=== PATIENT | male | born 2000 | race Caucasian/White ===

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

== ENCOUNTER → 2021-04-13 15:28 | Outpatient (CLI) | payer BC, MEDICAID, SELFPAY ==
[2021-04-13 16:21] LABS: Absolute Lymphocyte Count 2.36 X10^3/uL (0.83-4.51); Absolute Neutrophil Count 4.7 X10^3/uL (2.0-7.7); Basophil# 0.05 X10^3/uL; Basophil% 0.6 % (0-1); Eosinophils% 1.3 % (0-5); Hemoglobin 13.3 g/dL (13.0-16.5); Lymphocyte # 2.36 X10^3/ul (0.83-4.51); Lymphocyte % 29.8 % (19-41); Mean Corpuscular Hgb 30.1 pg (27.0-32.0); Mean Platelet Vol. 9.7 fl (6.2-12.0); Monocyte# 0.69 X10^3/uL; Monocyte% 8.7 % (0-10); NRBC Flagged by Analyzer 0 % (0-5); Neutrophil # 4.71 X10^3/uL (2.7-7.7); Neutrophil % 59.3 % (47-70); Platelet Count 280 K/mm3 (150-450); RBC Distribution Width SD 37.3 fl (35.1-43.9); Red Blood Count 4.42 M/mm3 (4.6-6.2); White Blood Count 7.9 K/mm3 (4.4-11.0)
[2021-04-13 16:34] LABS: Erythrocyte Sedimentation Rate 3 mm/hr (0-20)
[2021-04-13 17:40] LABS: ALB/GLOB Ratio 1.3 RATIO (0.9-2.4); AST(SGOT) 31 U/L (15-37); Alanine Aminotransfer ALT/SGPT 33 U/L (16-61); Albumin, Serum 4.2 g/dL (3.2-5.0); Alkaline Phosphatase 68 U/L (45-117); Anion Gap 7 (5-15); BUN 17 mg/dL (7-18); BUN/Creat Ratio 22.5 RATIO (10-20); CRP < 2.90 mg/L (0.0-3.0); Calcium,Total 9.1 mg/dL (8.5-10.1); Chloride 104 mmol/L (98-107); Creatinine, Serum 0.76 mg/dL (0.70-1.30); EST Glomerular Filtration Rate 137 mL/min (>60); Est Glom Filt Rate - Afr Amer 165 mL/min (>60); Globulin 3.2 g/dL (2.2-4.2); Glucose 79 mg/dL (74-106); Potassium 3.7 mmol/L (3.5-5.1); Protein, Total 7.4 g/dL (6.4-8.2); Sodium Level 138 mmol/L (136-145)
[2021-04-14 08:42] LABS: Rubella IgG Reactive (Nonreactive)
[2021-04-16 00:06] LABS: HEPATITIS B SURFACE AG Negative (Negative); Hepatitis A IgM Antibody Negative (Negative); Hepatitis B Core AB IgM Negative (Negative)
[2021-04-16 09:04] LABS: B. pertussis IgG 2.13 index (0.00-0.94); Hep C Antibodies <0.1 s/co ratio (0.0-0.9); Mumps Antibody, IgM < 0.80 AU (0.00-0.79); V-Zoster IgG (Immunity) 449 index (Immune >165)
== END ==
PROVIDERS: PCP Family Medicine; Referring Provider Internal Medicine Gastroenterology; Visit Provider Internal Medicine Gastroenterology
DX: K50.90 Crohn's disease, unspecified, without complications (principal); R10.9 Unspecified abdominal pain
CPT/HCPCS: 36415; 80053; 80074; 85025; 85652; 86140; 86735; 86762; 86787

== ENCOUNTER → 2021-04-14 17:33 | Outpatient (CLI) | payer BC, MEDICAID, SELFPAY ==
--- NOTE | 2021-04-14 17:36 | CT_ITS ---
STUDY: CT ABDOMEN AND PELVIS WITH CONTRAST REASON FOR EXAM: Male, 20 years old. Abdominal pain, history of Crohn''s disease RADIATION DOSAGE (If Supplied By Facility): CTDIvol = ( 8.7 ) mGy, DLP = ( 360.48 ) mGycm TECHNIQUE: CT images were obtained from the dome of the diaphragm to the symphysis pubis without oral contrast. Oral and amp; IV Readi-CAT and amp; 100mL Isovue-370 was administered. Sagittal and coronal images were reconstructed. Individualized dose optimization techniques were used for this CT. COMPARISON: None. FINDINGS: Examination is technically limited and was performed as a general abdominal exam, not CT enterography protocol. Assessment of bowel for inflammatory disease activity is suboptimal. General diagnostic information is available. Solid organs are normal. There is no intestinal obstruction. There is no stricture or enteric abscess. Left lower quadrant junction of descending and sigmoid is nondistended and difficult to evaluate for possibility of wall thickening. Appendix is normal. Gallbladder is normal. There is no biliary dilation. There is no hydronephrosis or stones. SI joints are normal. There is no seronegative spondyloarthropathy. CT/Abdomen/Pelvis WITH Contrast IMPRESSION: 1. No acute abdominal abnormality. Electronically Signed: Ba Irwin MD at 21:51 EST Tel , Service support ,
== END ==
PROVIDERS: PCP Family Medicine; Referring Provider Internal Medicine Gastroenterology; Visit Provider Internal Medicine Gastroenterology
DX: K50.90 Crohn's disease, unspecified, without complications (principal); R10.9 Unspecified abdominal pain
CPT/HCPCS: 74177; Q9967

== ENCOUNTER → 2022-03-10 | Outpatient (CLI) | payer BC, MEDICAID, SELFPAY ==
[2022-03-10 13:13] LABS: Absolute Lymphocyte Count 1.58 X10^3/uL (0.83-4.51); Absolute Neutrophil Count 8.4 X10^3/uL (2.0-7.7); Basophil# 0.03 X10^3/uL; Basophil% 0.3 % (0-1); Eosinophil# 0.01 X10^3/uL; Eosinophils% 0.1 % (0-5); Hemoglobin 16.2 g/dL (13.0-16.5); Lymphocyte # 1.58 X10^3/ul (0.83-4.51); Lymphocyte % 15.1 % (19-41); Mean Corp Hgb Conc 34.5 g/dL (32-36); Mean Corpuscular Hgb 30.7 pg (27.0-32.0); Mean Corpuscular Volume 89.2 fL (80-94); Mean Platelet Vol. 9.6 fl (6.2-12.0); Monocyte# 0.37 X10^3/uL; Monocyte% 3.5 % (0-10); NRBC Flagged by Analyzer 0 % (0-5); Neutrophil # 8.44 X10^3/uL (2.7-7.7); Neutrophil % 80.7 % (47-70); Platelet Count 295 K/mm3 (150-450); RBC Distribution Width CV 11.8 % (11.6-14.6); RBC Distribution Width SD 38.5 fl (35.1-43.9); Red Blood Count 5.27 M/mm3 (4.6-6.2); White Blood Count 10.5 K/mm3 (4.4-11.0)
[2022-03-10 13:22] LABS: Erythrocyte Sedimentation Rate < 1 mm/hr (0-20)
[2022-03-10 13:55] LABS: ALB/GLOB Ratio 1.4 RATIO (0.9-2.4); AST(SGOT) 12 U/L (15-37); Alanine Aminotransfer ALT/SGPT 20 U/L (16-61); Albumin, Serum 4.5 g/dL (3.2-5.0); Alkaline Phosphatase 62 U/L (45-117); Anion Gap 6 (5-15); BUN 12 mg/dL (7-18); BUN/Creat Ratio 14.1 RATIO (10-20); CRP < 2.90 mg/L (0.0-3.0); Calcium,Total 9.3 mg/dL (8.5-10.1); Chloride 105 mmol/L (98-107); Creatinine, Serum 0.85 mg/dL (0.70-1.30); EST Glomerular Filtration Rate 118 mL/min (>60); Est Glom Filt Rate - Afr Amer 143 mL/min (>60); Globulin 3.2 g/dL (2.2-4.2); Glucose 107 mg/dL (74-106); Potassium 3.8 mmol/L (3.5-5.1); Protein, Total 7.7 g/dL (6.4-8.2); Sodium Level 140 mmol/L (136-145)
[2022-03-14 19:09] LABS: Calprotectin, Stool 202 ug/g (0-120)
== END | disposition home or self-care (01) ==
PROVIDERS: PCP Family Medicine; Referring Provider Internal Medicine Gastroenterology; Visit Provider Internal Medicine Gastroenterology
DX: K50.90 Crohn's disease, unspecified, without complications (principal); K58.9 Irritable bowel syndrome, unspecified
CPT/HCPCS: 36415; 80053; 83630; 83993; 85025; 85652; 86140

== ENCOUNTER → 2022-07-27 | Outpatient (CLI) | payer BC, MEDICAID, SELFPAY ==
[2022-07-27 16:04] LABS: Absolute Lymphocyte Count 1.53 X10^3/uL (0.83-4.51); Absolute Neutrophil Count 6.3 X10^3/uL (2.0-7.7); Basophil# 0.06 X10^3/uL; Basophil% 0.7 % (0-1); Eosinophil# 0.05 X10^3/uL; Eosinophils% 0.6 % (0-5); Hematocrit 47.2 % (40-54); Hemoglobin 16.2 g/dL (13.0-16.5); Lymphocyte # 1.53 X10^3/ul (0.83-4.51); Lymphocyte % 17.9 % (19-41); Mean Corp Hgb Conc 34.3 g/dL (32-36); Mean Corpuscular Hgb 31.1 pg (27.0-32.0); Mean Corpuscular Volume 90.6 fL (80-94); Mean Platelet Vol. 10.1 fl (6.2-12.0); Monocyte# 0.59 X10^3/uL; Monocyte% 6.9 % (0-10); NRBC Flagged by Analyzer 0 % (0-5); Neutrophil # 6.29 X10^3/uL (2.7-7.7); Neutrophil % 73.7 % (47-70); Platelet Count 268 K/mm3 (150-450); RBC Distribution Width CV 11.9 % (11.6-14.6); RBC Distribution Width SD 39.5 fl (35.1-43.9); Red Blood Count 5.21 M/mm3 (4.6-6.2); White Blood Count 8.5 K/mm3 (4.4-11.0)
[2022-07-27 16:14] LABS: ALB/GLOB Ratio 1.6 RATIO (0.9-2.4); AST(SGOT) 23 U/L (15-37); Alanine Aminotransfer ALT/SGPT 23 U/L (16-61); Albumin, Serum 4.7 g/dL (3.2-5.0); Alkaline Phosphatase 70 U/L (45-117); Amylase 51 U/L (25-115); Anion Gap 3 (5-15); BUN 22 mg/dL (7-18); BUN/Creat Ratio 19.1 RATIO (10-20); Calcium,Total 9.7 mg/dL (8.5-10.1); Chloride 102 mmol/L (98-107); Creatinine, Serum 1.15 mg/dL (0.70-1.30); EST Glomerular Filtration Rate 83 mL/min (>60); Est Glom Filt Rate - Afr Amer 101 mL/min (>60); Globulin 2.9 g/dL (2.2-4.2); Glucose 91 mg/dL (74-106); Potassium 4.2 mmol/L (3.5-5.1); Protein, Total 7.6 g/dL (6.4-8.2); Sodium Level 136 mmol/L (136-145)
[2022-07-27 16:20] LABS: Erythrocyte Sedimentation Rate 1 mm/hr (0-20)
[2022-07-29 16:09] LABS: HEPATITIS B SURFACE AG Negative (Negative); Hep C Antibodies Non Reactive (Non Reactive); Hepatitis A IgM Antibody Negative (Negative); Hepatitis B Core AB IgM Negative (Negative); QNTFERON TB Mitogen Value > 10.00 IU/mL (.); QNTFERON TB Nil Value 0.05 IU/mL (.); QNTFERON TB1+ Ag Value 0.04 IU/mL (.); QNTFERON TB2+ Ag Value 0.04 IU/mL (.)
[2022-07-29 16:27] LABS: QNTIFERON TB Positive Criteria Negative (Negative)
== END | disposition home or self-care (01) ==
PROVIDERS: PCP Family Medicine; Referring Provider Internal Medicine Gastroenterology; Visit Provider Internal Medicine Gastroenterology
DX: K50.90 Crohn's disease, unspecified, without complications (principal)
CPT/HCPCS: 36415; 80053; 80074; 82150; 85025; 85652; 86480

== ENCOUNTER → 2022-08-26 | Outpatient (CLI) | payer BC, MEDICAID, SELFPAY ==
--- NOTE | 2022-08-26 10:11 | MRI_ITS ---
MR Enterography Abdomen/Pelvis WO/W Contrast 08/26/2022 11:29 AM COMPARISON: None available. CLINICAL HISTORY: K50.90 - Crohn''s disease, unspecified, without complications TECHNIQUE: Following oral administration of enteric contrast and administration of glucagon, multiplanar T1 and T2 weighted images along with dynamic post-gadolinium images were obtained through the abdomen and pelvis. FINDINGS: GI Tract: Normal caliber. Mild wall thickening and mucosal hyperenhancement of a few short segment small bowel loops in the left upper quadrant. No stricture, fistula, or obstruction. No drainable fluid collections. Liver: Unremarkable Gallbladder: Unremarkable Spleen: Unremarkable Pancreas: Unremarkable Adrenal Glands: Unremarkable Kidneys: Unremarkable Bladder: Unremarkable Reproductive: Unremarkable Vascular: Unremarkable Lymphadenopathy: Absent Ascites: Absent Bones: No suspicious lesions MRI/Enterography Abd/Pel IMPRESSION: Findings consistent with acute flare of Crohn''s disease. No stricture, fistula or obstruction. No drainable fluid collections. Electronically Signed: Jayro Bernabe MD at 22:42 EDT ,
[2022-08-26 10:35] VITALS: BP 97/61; PULSE 73; RESP 18; TEMP 36.8; O2SAT 100; BMI 22.0
[2022-08-26] MEDS: 0.9% Saline Lock 10 ML Syringe IV ×2 (11:30→11:49)
[2022-08-26] MEDS: Glucagon 1 MG/ML Syringe IV (11:49)
[2022-08-26 12:03] VITALS: BP 102/69; PULSE 70; RESP 18; O2SAT 100
== END | disposition home or self-care (01) ==
LOC: MRI 10:04
PROVIDERS: PCP Family Medicine; Referring Provider Internal Medicine Gastroenterology; Visit Provider Internal Medicine Gastroenterology
DX: K50.90 Crohn's disease, unspecified, without complications (principal)
CPT/HCPCS: 74183; 96374; A9575; J1610

== ENCOUNTER 2022-11-18 09:58 | Outpatient (CLI) | payer BC, MEDICAID, SELFPAY ==
[2022-11-18 10:28] VITALS: BP 124/68; PULSE 90; RESP 14; TEMP 36.4; O2SAT 96; BMI 21.2
[2022-11-18] MEDS: 0.9% NaCl Peripheral Flush Adult/Peds IV (10:36)
[2022-11-18] MEDS: Dextrose 5% 250 ML 15 ML IV (10:36)
[2022-11-18 12:22] VITALS: BP 123/77; PULSE 73; RESP 16; O2SAT 99
== END 2022-11-18 09:59 | disposition home or self-care (01) ==
LOC: MEDOUTP 09:59
PROVIDERS: PCP Family Medicine; Visit Provider Internal Medicine Gastroenterology
DX: K50.90 Crohn's disease, unspecified, without complications (principal)
CPT/HCPCS: 96365; 96366; A4216; J2327

== ENCOUNTER 2022-12-16 09:29 | Outpatient (CLI) | payer BC, MEDICAID, SELFPAY ==
[2022-12-16 09:37] VITALS: BP 111/63; PULSE 89; RESP 16; TEMP 36.1; O2SAT 95; BMI 21.4
[2022-12-16] MEDS: 0.9% NaCl Peripheral Flush Adult/Peds IV (09:45)
[2022-12-16] MEDS: Dextrose 5% 250 ML 15 ML IV (10:29)
[2022-12-16 11:50] VITALS: BP 109/58; PULSE 76; RESP 16; TEMP 36.6; O2SAT 94
== END 2022-12-16 09:30 | disposition home or self-care (01) ==
PROVIDERS: PCP Family Medicine; Referring Provider Internal Medicine Gastroenterology; Visit Provider Internal Medicine Gastroenterology
DX: K50.90 Crohn's disease, unspecified, without complications (principal)
CPT/HCPCS: 96360; A4216; J2327

== ENCOUNTER 2023-01-13 09:19 | Outpatient (CLI) | payer BC, MEDICAID, SELFPAY ==
[2023-01-13 09:25] VITALS: BP 101/53; PULSE 73; RESP 16; TEMP 36.5; O2SAT 94; BMI 20.7
[2023-01-13] MEDS: 0.9% NaCl Peripheral Flush Adult/Peds IV (09:31)
[2023-01-13] MEDS: WATER IV (09:52)
[2023-01-13] MEDS: DEXTROSE 5% IV (09:52)
[2023-01-13] MEDS: Risankizumab-rzza 600 MG in Dextrose 5%-Water (100mL Bag) 100 ML 110 MG IV (09:55)
[2023-01-13 11:26] VITALS: BP 110/62; PULSE 91; RESP 16; O2SAT 99
== END 2023-01-13 09:20 | disposition home or self-care (01) ==
LOC: MEDOUTP 09:19
PROVIDERS: PCP Family Medicine; Referring Provider Internal Medicine Gastroenterology; Visit Provider Internal Medicine Gastroenterology
DX: K50.90 Crohn's disease, unspecified, without complications (principal)
CPT/HCPCS: 96365; A4216; J2327

== ENCOUNTER → 2023-06-08 | Outpatient (CLI) | payer BC, MEDICAID, SELFPAY ==
[2023-06-08 14:14] LABS: Erythrocyte Sedimentation Rate 1 mm/hr (0-20)
[2023-06-08 14:15] LABS: CRP < 2.90 mg/L (0.0-3.0); LDH 253 U/L (87-241)
[2023-06-08 14:16] LABS: Hemoglobin 14.5 g/dL (13.0-16.5)
--- OUTSIDE RECORDS SUMMARY | 2023-06-08 18:23 | XMS RPT_ITS | CCD ---
Author Name Unknown Address [address] [place] [address] Organization [facility] Care Team Providers Care Commercial Loan Analyst Name Role Phone CHILO MCNAMARA, BOO Banuelos Primary Care Physician VINITA MCNAMARA, AUGUSTUS Rose Attending Unavailab BOO Ruelas MD Primary Care Unavailable Allergies Allergy Classification Reported Allergen(s) Allergy Type Date of Onset Reaction(s) Facility (1 source) Penicillin; Translations: [penicillin] Drug Allergy unknown [facility] (1 source) Sulfamethoxazole / Trimethoprim; Translations: [sulfamethoxazole-tr imethoprim] Drug Allergy Rash [facility] Medications Current Medications Medication Drug Class(es) Dates Sig (Normalized) Sig (Original) FLUoxetine 20 mg oral capsule (1 source) Serotonin Reuptake Inhibitor Start: 05-05-2021 FLUoxetine 20 mg oral capsule Dose : 20 mg = 1 cap(s), Oral, qDay, # 90 cap(s), 3 Refill(s), Pharmacy: [facility]/pharmacy #[id number], Moderate major depression, single episode, 174, cm, 05/05/21 15:47:00 EST, Height, kg, 05/05/21 15:47:00 EST, Dosing Weight Start Date: 05/05/21 Status: Ordered folic acid 1 mg oral tablet (1 source) Start: 10-17-2019 folic acid 1 mg oral tablet See Instructions, 0 Refill(s) Start Date: 10/17/19 Status: Ordered methotrexate 2.5 mg oral tablet (1 source) Folate Analog Metabolic Inhibitor Start: 10-17-2019 methotrexate 2.5 mg oral tablet Dose : 10 mg = 4 tab(s), Oral, qWeek, 0 Refill(s) Start Date: 10/17/19 Status: Ordered 1 ml ustekinumab 90 mg/ml prefilled syringe (1 source) Interleukin-12 Antagonist, Interleukin-23 Antagonist Start: 10-17-2019 Stelara PFS 90 mg/mL subcutaneous solution See Instructions, 1 mL Subcutaneous, 0 Refill(s) Start Date: 10/17/19 Status: Ordered Vitamin D3 (1 source) Start: 10-17-2019 Vitamin D3 Oral, qDay, 0 Refill(s) Start Date: 10/17/19 Status: Ordered Problems Problem Classification Problem Date Documented Da te Episodic/Chronic Allergic reactions (1 source) Atopic dermatitis 05-05-2021 Chronic Attention-deficit, conduct, and disruptive behavior disorders (1 source) Attention deficit hyperactivity disorder, combined type 03-12-2020 Chronic Headache; including migraine (1 source) Migraine without aura, not refractory 03-11-2019 Chronic Mood disorders (1 source) Moderate major depression, single episode 11-11-2019 Chronic Regional enteritis and ulcerative colitis (1 source) Crohn's disease 03-11-2019 Chronic Results Test Name Value Interpretation Reference Range Facil ity Vital Signs Date Time Vital Sign Value Performing Clinician Faci lity 04-11-2022 16:36-0500 Body height 172.[address] AUGUSTUS TALAMANTES MD [facility] 04-11-2022 16:36-0500 Body weight 63.[address] AUGUSTUS TALAMANTES MD [facility] 04-11-2022 16:36-0500 Diastolic Blood Pressure Non-Invasive [address] AUGUSTUS TALAMANTES MD [facility] 04-11-2022 16:36-0500 Heart rate 92 /min DR AUGUSTUS TALAMANTES MD [facility] 04-11-2022 16:36-0500 Respiratory rate 18 /min DR AUGUSTUS TALAMANTES MD [facility] 04-11-2022 16:36-0500 Systolic Blood Pressure Non-Invasive [address] AUGUSTUS TALAMANTES MD [facility] Encounters Encounter Date Encounter Type Care Provider Facility Start: 04-11-2022 End: 04-11-2022 Emergency department patient visit AUGUSTUS TALAMANTES MD Facility:B Start: 04-11-2022 End: 04-11-2022 Emergency department patient visit DR AUGUSTUS TALAMANTES MD [facility] Procedures Date Procedure Procedure Detail Performing Clinician Hemorrhoidectomy DR AUGUSTUS CASILLAS MD Immunizations Immunization Date Immunization Notes Care Provider Fa cili 04-11-2022 tetanus toxoid, redu devendra diphtheria toxoid, and acellular pertussis vaccine, adsorbed DR AUGUSTUS TALAMANTES MD [facility] 02-11-2019 influenza virus vaccine, unspecified formulation DR AUGUSTUS TALAMANTES MD [facility] 01-19-2018 influenza virus vaccine, unspecified formulation DR AUGUSTUS TALAMANTES MD [facility] 01-30-2017 influenza virus vaccine, unspecified formulation DR AUGUSTUS TALAMANTES MD [facility] 01-22-2017 influenza virus vaccine, unspecified formulation DR AUGUSTUS TALAMANTES MD [facility] 04-20-[address] AUGUSTUS TALAMANTES MD [facility] 02-05-2016 influenza virus vaccine, unspecified formulation DR AUGUSTUS TALAMANTES MD [facility] 12-14-[address] AUGUSTUS TALAMANTES MD [facility] 10-13-[address] AUGUSTUS TALAMANTES MD [facility] 03-18-2015 influenza virus vaccine, unspecified formulation DR AUGUSTUS TALAMANTES MD [facility] 02-14-2014 influenza virus vaccine, unspecified formulation DR AUGUSTUS TALAMANTES MD [facility] 01-25-2013 influenza virus vaccine, unspecified formulation DR AUGUSTUS TALAMANTES MD [facility] 02-10-2012 influenza virus vaccine, unspecified formulation DR AUGUSTUS TALAMANTES MD [facility] 11-03-2011 meningococcal polysaccharide (groups A, C, Y and W-135) diphtheria toxoid conjugate vaccine (MCV4P) DR AUGUSTUS TALAMANTES MD [facility] 11-03-2011 tetanus toxoid, redu devendra diphtheria toxoid, and acellular pertussis vaccine, adsorbed DR AUGUSTUS TALAMANTES MD [facility] 11-03-[address] Joanie TALAMANTES MD [facility] 01-20-2000 measles/mumps/rubell a virus vaccine DR AUGUSTUS TALAMANTES MD [facility] 01-20-[address], inactivated [address] AUGUSTUS TALAMANTES MD [facility] 08-19-1999 hepatitis B pediatri c vaccine DR AUGUSTUS TALAMANTES MD [facility] 06-17-1999 haemophilus influenz ae type b vaccine, PRP-OMP conjugate DR AUGUSTUS TALAMANTES MD [facility] 03-26-1999 haemophilus influenz ae type b vaccine, PRP-OMP conjugate DR AUGUSTUS TALAMANTES MD [facility] 03-26-1999 hepatitis B pediatri c vaccine DR AUGUSTUS TALAMANTES MD [facility] 03-26-[address] vaccine, inactivated DR AUGUSTUS TALAMANTES MD [facility] 01-22-1999 haemophilus influenz ae type b vaccine, PRP-OMP conjugate DR AUGUSTUS TALAMANTES MD [facility] 01-22-1999 hepatitis B pediatri c vaccine DR AUGUSTUS TALAMANTES MD [facility] 01-22-[address], inactivated [address] AUGUSTUS TALAMANTES MD [facility] Payers Date Payer Category Payer Unknown [id number] 2022 Unknown [id number] 2000 Unknown [id number] Social History Date Type Detail Facility Start: 03-11-2019 Tobacco smoking status Never s moked tobacco (finding) [facility] Functional Status Date Assessment Result Facility 04-11-2022 Functional Status Assistive Device None A [facility] Mental Status Date Assessment Result Facility 04-11-2022 Mental Status Orientation Oriented x 4 [facility] Discharge instructions 04-11-2022 Note Date & Type Note Facility 04-11-2022 Hospital Discharg e instructions Patient Education 04/11/2022 17:07:37 Laceration, Hand: All Closures Hand Laceration: All Closures A laceration is a cut through the skin. Deep cuts usually require stitches. Minor cuts may be closed with surgical tape or skin adhesive. X-rays may be done if something may have entered the skin through the cut, such as broken glass. You may also be given a tetanus shot if you are not up to date on this vaccination and the object that cut you may carry tetanus. Home care Your healthcare provider may prescribe an antibiotic. This is to help prevent infection. Follow all instructions for taking this medicine. Take the medicine every day until it is gone or you are told to stop. You should not have any left over. The healthcare provider may prescribe medicines for pain. Follow instructions for taking them. Follow the healthcare provider s instructions on how to care for the cut. Keep the wound clean and dry. Don't get the wound wet until you are told it is OK to do so. If the bandage gets wet, remove it. Gently pat the wound dry with a clean cloth. Then put on a clean, dry bandage. To help prevent infection, wash your hands with soap and water before and after caring for the wound. Caring for stiches: Once you no longer need to keep the stitches dry, clean the wound daily. First, remove the bandage. Then wash the area gently with soap and warm water, or as directed by the healthcare provider. Use a wet cotton swab to loosen and remove any blood or crust that forms. After cleaning, apply a thin layer of antibiotic ointment if advised. Then put on a new bandage unless you are told not to. Caring for skin glue: Don t put apply liquid, ointment, or cream on the wound while the glue is in place. Avoid activities that cause heavy sweating. Protect the wound from sunlight. Don't scratch, rub, or pick at the adhesive film. Don't place tape directly over the film. The glue should peel off within 5 to 10 days. Caring for surgical tape: Keep the area dry. If it gets wet, blot it dry with a clean towel. Surgical tape usually falls off within 7 to 10 days. If it has not fallen off after 10 days, you can take it off yourself. Put mineral oil or petroleum jelly on a cotton ball and gently rub the tape until it is removed. Once you can get the wound wet, you may shower as usual, but don't soak the wound in water. This means no tub baths or swimming. Even with proper treatment, a wound infection may sometimes occur. Check the wound daily for signs of infection listed below. Follow-up care Follow up with your healthcare provider, or as advised. If you have stitches, be sure to return as directed to have them removed. When to seek medical advice Call your healthcare provider right away if any of these occur: Wound bleeding not controlled by direct pressure Signs of infection, including increasing pain in the wound, increasing wound redness or swelling, or pus or bad odor coming from the wound Fever of 100.4 F (38. C) o higher, or as directed by your healthcare provider Stitches come apart or fall out or surgical tape falls off before 7 days Wound edges reopen Wound changes colors Numbness or weakness in the affected hand Decreased movement of the hand [id number] [employer] [address] [place] [address]. All rights reserved. This information is not intended as a substitute for professional medical care. Always follow your healthcare professional's instructions. Follow Up Care 04/11/2022 15:59:17 With:BOO WOO MD Address: [address] [place] [address]- When:2-4 days [facility] Emergency department Discharge summary 04-11-2022 Note Date & Type Note Facility 04-11-2022 Emergency department Discharge summary Discharge Instructions Thank you for allowing [facility] to assist you with your healthcare needs. The following is important discharge information regarding your hospital visit. Diagnosis from Today's Visit Finger laceration What to Do Next Instructions from Your Care Team Sutures removed in 7 to 10 days by primary care physician. Keep area dry and clean. If evidence of infection such as fever, redness, purulent material draining from the wound return for further evaluation and management No qualifying data available. Post Acute Orders No qualifying data available. You Need to Schedule the Following Appointments Follow Up with BOO WOO MD When Within 2-4 days Where: [address] [place], [place] [id number]- Allergies Septra (Rash) penicillin (unknown) Immunizations This Visit Given Vaccine Datetetanus/diphth/pertuss (Tdap) adult/adol 04/11/2022 Medications Please ask your primary doctor or pharmacist before taking any other medication not listed, including over the counter drugs, herbal medications, vitamins and or supplements as they may interact with your home medications. What How Much When Why Instructions Last Dose Unchanged cholecalciferol (Vitamin D3) by mouth Once a day Unchanged FLUoxetine (FLUoxetine 20 mg oral capsule) 1 cap by mouth Once a day Moderate major depression, single episode Unchanged folic acid (folic acid 1 mg oral tablet) See instructions Unchanged methotrexate (methotrexate 2.5 mg oral tablet) 4 tab(s) by mouth Every week Unchanged ustekinumab (Stelara PFS 90 mg/ mL subcutaneous solution) See instructions 1 mL Subcutaneous Please take this list to your next doctor s visit. Bring all medications you take, including over the counter medications, herbals and other supplements with you to your doctor s visit. Patients and families are reminded to discard old lists and to update any records with all medication providers or retail pharmacies. Education Materials Hand Laceration: All Closures A laceration is a cut through the skin. Deep cuts usually require stitches. Minor cuts may be closed with surgical tape or skin adhesive. X-rays may be done if something may have entered the skin through the cut, such as broken glass. You may also be given a tetanus shot if you are not up to date on this vaccination and the object that cut you may carry tetanus. Home care Your healthcare provider may prescribe an antibiotic. This is to help prevent infection. Follow all instructions for taking this medicine. Take the medicine every day until it is gone or you are told to stop. You should not have any left over. The healthcare provider may prescribe medicines for pain. Follow instructions for taking them. Follow the healthcare provider s instructions on how to care for the cut. Keep the wound clean and dry. Don't get the wound wet until you are told it is OK to do so. If the bandage gets wet, remove it. Gently pat the wound dry with a clean cloth. Then put on a clean, dry bandage. To help prevent infection, wash your hands with soap and water before and after caring for the wound. Caring for stiches: Once you no longer need to keep the stitches dry, clean the wound daily. First, remove the bandage. Then wash the area gently with soap and warm water, or as directed by the healthcare provider. Use a wet cotton swab to loosen and remove any blood or crust that forms. After cleaning, apply a thin layer of antibiotic ointment if advised. Then put on a new bandage unless you are told not to. Caring for skin glue: Don t put apply liquid, ointment, or cream on the wound while the glue is in place. Avoid activities that cause heavy sweating. Protect the wound from sunlight. Don't scratch, rub, or pick at the adhesive film. Don't place tape directly over the film. The glue should peel off within 5 to 10 days. Caring for surgical tape: Keep the area dry. If it gets wet, blot it dry with a clean towel. Surgical tape usually falls off within 7 to 10 days. If it has not fallen off after 10 days, you can take it off yourself. Put mineral oil or petroleum jelly on a cotton ball and gently rub the tape until it is removed. Once you can get the wound wet, you may shower as usual, but don't soak the wound in water. This means no tub baths or swimming. Even with proper treatment, a wound infection may sometimes occur. Check the wound daily for signs of infection listed below. Follow-up care Follow up with your healthcare provider, or as advised. If you have stitches, be sure to return as directed to have them removed. When to seek medical advice Call your healthcare provider right away if any of these occur: Wound bleeding not controlled by direct pressure Signs of infection, including increasing pain in the wound, increasing wound redness or swelling, or pus or bad odor coming from the wound Fever of 100.4 F (38. C) o higher, or as directed by your healthcare provider Stitches come apart or fall out or surgical tape falls off before 7 days Wound edges reopen Wound changes colors Numbness or weakness in the affected hand Decreased movement of the hand [phone] [employer] [address] [place] [address]. All rights reserved. This information is not intended as a substitute for professional medical care. Always follow your healthcare professional's instructions. Additional Information VACCINATE! IT SAVES LIVES! Members of the community who have not yet received the COVID-19 vaccine and would like to receive it can visit one of [facility] vaccine clinics. There are many vaccine clinic locations within the [facility]. For locations and available times, please visit [email or web address]. It is important to note that some COVID mobile vaccine clinics are held outdoors and may be canceled in rainy or stormy conditions. To learn more about pediatric vaccinations (ages 5-11), we invite you to visit the [facility] webpage. [email or web address] To learn more about the COVID-19 vaccine, we invite you to visit the [facility] website for a list of frequently asked questions. [email or web address] [email or web address] [facility] Patient Portal Access Instructions: Stay connected with your healthcare team and access your personal medical information anytime with the [facility] Patient Portal. If you would like a full copy of your medical records please contact the [facility] Medical Records Department Monday through Monday between 8a.m. and 4:30p.m. Please follow the directions below to access the portal: 1.Access the email account you provided upon registration to the hospital.2.Look for an invitation email from [facility].3.Open the email and access the invitation link: Accept Invitation to [facility]4.Fill in the required hicks to create your account. Sign into www.[employer] with your username and password that you created in the above steps to stay up to date. You can then view a summary of results, a summary of your visits, and the ability to download your summaries to your computer or send the information securely to a physician. Remember that your healthcare information is confidential, so carefully consider who you will allow to register on the [facility] Patient Portal for access to your information. You can also access the [facility] Patient Portal on the [employer]. Simply click on Health Records under Health Data and then click on the [employer] logo. HOW TO SAFELY DISPOSE OF PRESCRIPTION MEDICATIONS Please use one of the following methods to safely dispose of your unused medications. 1.Use a drug disposal kit: the drug disposal pouch allows you to safely discard your old and unused drugs. Ask your nurse to give you one when you are discharged.2.Visit a local take-back location: Many local pharmacies and police departments have programs that collect old and unwanted prescription drugs. Call your local pharmacy or go to http://[employer].ezeep/9F2Rn5w to find one close to you.3.Make use of household items: Use cat litter or old coffee grounds to dispose medications if other options are not available. Mix your drugs with these household products, seal them in an airtight container and throw it into the garbage. Call [facility]: [phone] to be sure your drugs can be disposed of in this way. Some medicines may require a different approach.4.Never flush your medications down the toilet. IF YOU HAVE BEEN PRESCRIBED AN OPIOIDS FOR PAIN If you have been prescribed an opioid (such as hydrocodone, oxycodone or morphine), it is critical to understand the possible side effects and risks of opioid pain medications. Even when taken as directed, opioids can have several side effects including: Tolerance, meaning you might need to take more of a medication for the same pain relief. Nausea, vomiting and/or constipation. Sleepiness, dizziness, dry mouth, confusion, depression or itching. Physical dependence, meaning you have withdrawal symptoms when a medication is stopped ? this can develop within a few days. KNOW YOUR RESPONSIBILITIES It is important to know exactly how much and how often to take the opioid pain medications you are prescribed. Never take opioids in higher amounts or more often than prescribed. Do not combine opioids with alcohol or other drugs that cause drowsiness, such as benzodiazepines, also known as benzos, including diazepam and alprazolam, muscle relaxants or sleep aids. Never sell or share prescription opioids. This is illegal. Store opioids in a secure place and out of reach of others (including children, family, friends and visitors). The last page(s) of this document has been signed and retained as a CHART COPY Signatures Patient Education Materials Sydney Lewis: All Closures Medication Leaflets My discharge plan and instructions have been reviewed and explained to me and IDUSTY NICHOLAS understand my current condition and have read and understand these discharge instructions. I have received a written copy of the plan/instructions. If I have questions, I am aware that I should contact my doctor. 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 The following is important discharge information regarding your hospital visit. Diagnosis from Today's Visit Finger laceration What to Do Next Instructions from Your Care Team Sutures removed in 7 to 10 days by primary care physician. Keep area dry and clean. If evidence of infection such as fever, redness, purulent material draining from the wound return for further evaluation and management No qualifying data available. Post Acute Orders No qualifying data available. You Need to Schedule the Following Appointments Follow Up with BOO WOO MD When Within 2-4 days Where: [address] [place] [address]- Allergies Septra (Rash) penicillin (unknown) Immunizations This Visit Given Vaccine Datetetanus/diphth/pertuss (Tdap) adult/adol 04/11/2022 Medications Please ask your primary doctor or pharmacist before taking any other medication not listed, including over the counter drugs, herbal medications, vitamins and or supplements as they may interact with your home medications. What How Much When Why Instructions Last Dose Unchanged cholecalciferol (Vitamin D3) by mouth Once a day Unchanged FLUoxetine (FLUoxetine 20 mg oral capsule) 1 cap by mouth Once a day Moderate major depression, single episode Unchanged folic acid (folic acid 1 mg oral tablet) See instructions Unchanged methotrexate (methotrexate 2.5 mg oral tablet) 4 tab(s) by mouth Every week Unchanged ustekinumab (Stelara PFS 90 mg/ mL subcutaneous solution) See instructions 1 mL Subcutaneous Please take this list to your next doctor s visit. Bring all medications you take, including over the counter medications, herbals and other supplements with you to your doctor s visit. Patients and families are reminded to discard old lists and to update any records with all medication providers or retail pharmacies. Education Materials Hand Laceration: All Closures A laceration is a cut through the skin. Deep cuts usually require stitches. Minor cuts may be closed with surgical tape or skin adhesive. X-rays may be done if something may have entered the skin through the cut, such as broken glass. You may also be given a tetanus shot if you are not up to date on this vaccination and the object that cut you may carry tetanus. Home care Your healthcare provider may prescribe an antibiotic. This is to help prevent infection. Follow all instructions for taking this medicine. Take the medicine every day until it is gone or you are told to stop. You should not have any left over. The healthcare provider may prescribe medicines for pain. Follow instructions for taking them. Follow the healthcare provider s instructions on how to care for the cut. Keep the wound clean and dry. Don't get the wound wet until you are told it is OK to do so. If the bandage gets wet, remove it. Gently pat the wound dry with a clean cloth. Then put on a clean, dry bandage. To help prevent infection, wash your hands with soap and water before and after caring for the wound. Caring for stiches: Once you no longer need to keep the stitches dry, clean the wound daily. First, remove the bandage. Then wash the area gently with soap and warm water, or as directed by the healthcare provider. Use a wet cotton swab to loosen and remove any blood or crust that forms. After cleaning, apply a thin layer of antibiotic ointment if advised. Then put on a new bandage unless you are told not to. Caring for skin glue: Don t put apply liquid, ointment, or cream on the wound while the glue is in place. Avoid activities that cause heavy sweating. Protect the wound from sunlight. Don't scratch, rub, or pick at the adhesive film. Don't place tape directly over the film. The glue should peel off within 5 to 10 days. Caring for surgical tape: Keep the area dry. If it gets wet, blot it dry with a clean towel. Surgical tape usually falls off within 7 to 10 days. If it has not fallen off after 10 days, you can take it off yourself. Put mineral oil or petroleum jelly on a cotton ball and gently rub the tape until it is removed. Once you can get the wound wet, you may shower as usual, but don't soak the wound in water. This means no tub baths or swimming. Even with proper treatment, a wound infection may sometimes occur. Check the wound daily for signs of infection listed below. Follow-up care Follow up with your healthcare provider, or as advised. If you have stitches, be sure to return as directed to have them removed. When to seek medical advice Call your healthcare provider right away if any of these occur: Wound bleeding not controlled by direct pressure Signs of infection, including increasing pain in the wound, increasing wound redness or swelling, or pus or bad odor coming from the wound Fever of 100.4 F (38. C) o higher, or as directed by your healthcare provider Stitches come apart or fall out or surgical tape falls off before 7 days Wound edges reopen Wound changes colors Numbness or weakness in the affected hand Decreased movement of the hand [id number] [employer]. [address] [place] [address]. All rights reserved. This information is not intended as a substitute for professional medical care. Always follow your healthcare professional's instructions. Additional Information VACCINATE! IT SAVES LIVES! Members of the community who have not yet received the COVID-19 vaccine and would like to receive it can visit one of [facility] vaccine clinics. There are many vaccine clinic locations within the [facility]. For locations and available times, please visit [email or web address]. It is important to note that some COVID mobile vaccine clinics are held outdoors and may be canceled in rainy or stormy conditions. To learn more about pediatric vaccinations (ages 5-11), we invite you to visit the [facility] webpage. [email or web address]-Frequently-[email or web address] -Questions.html To learn more about the COVID-19 vaccine, we invite you to visit the [place] website for a list of frequently asked questions. [email or web address] [email or web address]_[email or web address] [email or web address].pdf [facility] Patient Portal Access Instructions: Stay connected with your healthcare team and access your personal medical information anytime with the [facility]. If you would like a full copy of your medical records please contact the [facility] Medical Records Department Monday through Monday between 8a.m. and 4:30p.m. Please follow the directions below to access the portal: 1.Access the email account you provided upon registration to the community health systems.2.Look for an invitation email from [facility].3.Open the email and access the invitation link: Accept Invitation to [facility]4.Fill in the required hicks to create your account. Sign into [email or web address] with your username and password that you created in the above steps to stay up to date. You can then view a summary of results, a summary of your visits, and the ability to download your summaries to your computer or send the information securely to a physician. Remember that your healthcare information is confidential, so carefully consider who you will allow to register on the [facility] [employer] Patient Portal for access to your information. You can also access the [facility] Patient Portal on the [employer] suzanne. Simply click on Health Records under Health Data and then click on the [employer] logo. HOW TO SAFELY DISPOSE OF PRESCRIPTION MEDICATIONS Please use one of the following methods to safely dispose of your unused medications. 1.Use a drug disposal kit: the drug disposal pouch allows you to safely discard your old and unused drugs. Ask your nurse to give you one when you are discharged.2.Visit a local take-back location: Many local pharmacies and police departments have programs that collect old and unwanted prescription drugs. Call your local pharmacy or go to http://bit.ezeep/9I9Ve0x to find one close to you.3.Make use of household items: Use cat litter or old coffee grounds to dispose medications if other options are not available. Mix your drugs with these household products, seal them in an airtight container and throw it into the garbage. Call [facility]: [phone] to be sure your drugs can be disposed of in this way. Some medicines may require a different approach.4.Never flush your medications down the toilet. IF YOU HAVE BEEN PRESCRIBED AN OPIOIDS FOR PAIN If you have been prescribed an opioid (such as hydrocodone, oxycodone or morphine), it is critical to understand the possible side effects and risks of opioid pain medications. Even when taken as directed, opioids can have several side effects including: Tolerance, meaning you might need to take more of a medication for the same pain relief. Nausea, vomiting and/or constipation. Sleepiness, dizziness, dry mouth, confusion, depression or itching. Physical dependence, meaning you have withdrawal symptoms when a medication is stopped ? this can develop within a few days. KNOW YOUR RESPONSIBILITIES It is important to know exactly how much and how often to take the opioid pain medications you are prescribed. Never take opioids in higher amounts or more often than prescribed. Do not combine opioids with alcohol or other drugs that cause drowsiness, such as benzodiazepines, also known as benzos, including diazepam and alprazolam, muscle relaxants or sleep aids. Never sell or share prescription opioids. This is illegal. Store opioids in a secure place and out of reach of others (including children, family, friends and visitors). The last page(s) of this document has been signed and retained as a CHART COPY Signatures Patient Education Materials Sydney Lewis: All Closures Medication Leaflets My discharge plan and instructions have been reviewed and explained to me and IDUSTY NICHOLAS understand my current condition and have read and understand these discharge instructions. I have received a written copy of the plan/instructions. If I have questions, I am aware that I should contact my doctor. 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: _ Date/Time: Relationship to Patient: Witness Name/Signature: Date/Time: [facility] Evaluation + Plan note Note Date & Type Note Facility Evaluation + Plan note No data available for this section [facility] Summary Purpose Family History No Family History Records FoundNo Family History Records Found Advance Directives No Advanced Directives Records FoundNo Advanced Directives Records Found Additional Source Comments (unrecognized sect ion and content) No Status Records FoundNo Status Records Found INFORMATION SOURCE (unrecogn ized section and content) DATE CREATED AUTHOR AUTHOR'S ORGANIZ ATION 04/19/2022 [facility] ([place]) Care Team (unrecognized sect ion and content) Care Team Personnel Name: BOO WOO MD Position: Physician - Primary Care Member Role: Primary Care Physician Address: Address: [address] [place] [address] [address] [facility] [place], [place] [address] Name: ANTONIETA CHAMPION DO Position: Resident Member Role: Resident Address: Address: [address] [place] [address] Emergency Resident [place], [place] [address] Name: MD AUGUSTUS TALAMANTES MD Position: ED Physician Member Role: ED Physician Address: Address: [facility] [address] [place], [place] [id number]- Care Team Related Persons Name: ARMANDO MONTANO Address: Home [address] [place] [address] [phone] Address: Temporary [address] [place] [address] [phone] FOR RECORDS PERTAINING TO PATIENTS WHO ARE OR HAVE BEEN ENROLLED IN A CHEMICAL DEPENDENCY/SUBSTANCEABUSE PROGRAM, SOME INFORMATION MAY BE OMITTED. This clinical summary was aggregated from multiple sources. Caution should be exercised in using it in the provision of clinical care. This summary normalizes information from multiple sources, and as a consequence, information in this document may materially change the coding, format and clinical context of patient data. In addition, data may be omitted in some cases. CLINICAL DECISIONS SHOULD BE BASED ON THE PRIMARY CLINICAL RECORDS. [facility] [employer] [facility]. provides no warranty or guarantee of the accuracy or completeness of information in this document.
== END | disposition home or self-care (01) ==
LOC: LAB 12:17
PROVIDERS: PCP Family Medicine; Referring Provider Internal Medicine Gastroenterology; Visit Provider Internal Medicine Gastroenterology
DX: K50.00 Crohn's disease of small intestine without complications (principal)
CPT/HCPCS: 36415; 83615; 85018; 85652; 86140

== ENCOUNTER 2023-10-02 06:26 | Day surgery (SDC) | payer BC, MEDICAID, SELFPAY ==
[2023-08-02 00:07] LABS: Calprotectin, Stool 285 ug/g (0-120)
[2023-10-02 06:42] VITALS: BP 112/72; PULSE 60; RESP 16; TEMP 36.5; O2SAT 100; BMI 21.2
[2023-10-02] MEDS: Lactated Ringers 1,000 ML 15 ML IV (06:44)
--- NOTE | 2023-10-02 07:10 | HP.PCM_ITS ---
History and Physical Date of Admission: 10/02/23 JAYDON MONTANO, is a 22 M who presents to the office today for GI ACH established CT abd/pel 04.07.18 at [facility] air within colon; previous small bowel dilation resolved. EGD performed 06.06.18 at [facility] finding patchy erythematous mucosa of antrum, gastropathy. MRI enterography 07.04.18 at [facility] with concern to IBD i ncluding jejunal mural stratification; terminal ileal and sigmoid colon hyperenhancement and restricted diffusion, fatty proliferation and engorged vasa recta of the pelvis; abnormal bone marrow signal throughout spine and pelvis, ?red marrow reconversion from anemia. EGD and colonoscopy performed 04.22.20 at [facility] finding patent erythematous mucosa of fundus; patchy erythematous mucosa, gastropathy/gastritis. No pathologic changes. Colonoscopy report unavailable at this time, though biopsies show patchy chronic active colitis. EGD performed 04.26.19 at [facility] finding patchy erythematous mucosa of antrum, gastropathy. CT abd/pel 04.14.21 at [facility] without acute abdominal abnormality. *BGI established 04.01.21 for previously diagnosed with Crohn?s disease of the ileocolonic and jejunal colon and was managed through [facility] until he became an adult and established with this office. Previous medications attempted include Lialda, methotrexate and Humira which disease did not response to. Then started on Stelara Q8W which was mildly helpful and frequency then increased to Q4W and he is well managed with this. 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 Stelara initially started suzanne roximately 2019. OV 2..22 with continuing intermittent abdominal discomfort that does not particularly bother him. He appears to be in remission; possible transition to azathioprine recommended. OV 8..22 Continues with Stelara Q4W. Transition to Q6W. OV 12.. intermittent loose stools and one episode of bloody stools. Continue with current plan. OV 4.. Reports he is doing very well with formed stool without blood. No joint pain, vision changes or rashes. ? MREnterography 5.5.23 mild wall thickening and mucosal hyperenhancement of small bowel loops without stricture, fistula or obstruction. Contact 08.29.22 with need to change therapy to Skyrizi; start prednisone taper. Contact 12.19.22 reporting positive response to Skyrizi, second infusion 12.16.22, third infusion 01.13.23 without SE. Taper prednisone. OV 01.25.23 intermittent loose stools occur less than weekly and are not a difficulty, possible food trigger. ? ESR/CRP? Calpro/Lacto? serum/Ab 04.13.21 3/<2.9? --/--? 13/none 03.10.22 <1/<2.9? H202/+? 13/none 07.28.22 1/--? --/--? --/--? amylase, hepatitis, TB WNL. ? Skyrizi start ROS Const Constitutional: No anorexia, fatigue, fever(s), weight change or sleep problems Eyes Eyes: No change in vision ENT ENT: No abnormal hearing, difficulty swallowing, mouth lesions, tongue swelling or throat swelling Resp Respiratory: No cough or shortness of breath Cardio Cardiology: No chest pain at rest, chest pain with exertion, shortness of breath or dyspnea on exertion Gastro GI: No difficulty swallowing Genitourinary Male: No difficulty urinating or burning urination Musc Musculoskeletal: No joint pain, joint swelling, muscle weakness or decreased muscle mass Skin Skin: No hair loss in leg, yellowing of the eye, itchy eyes, rash, skin ulcer or skin swelling Neuro Neurology: No abnormal hearing, abnormal movements, confusion, unsteady gait/balance or memory loss Psych Psychiatric: No anxiety, No confusion and No memory loss Endo Endocrine: No fatigue or weight change Aller/Imm Allergy/Immunologic: No itchy eyes, throat swelling or tongue swelling Jono/Lymp Hematologic/Lymphatic: No easy bleeding, easy bruising or enlarged lymph nodes Exam Const General: cooperative and comfortable Nutritional Appearance: average body habitus and well nourished HENAL Head: normal to inspection Ears: hearing grossly normal bilaterally Nose: external nose normal Face and sinus: normal facial exam Mouth: oral mucosae normal Throat: posterior oropharynx normal Eyes General: appearance normal, both eyes and all related structures Neck Neck: normal visual inspection Chest Chest palpation & inspection: normal inspection of the chest and normal p alpation of entire chest wall Resp Effort & Inspection: normal respiratory effort Auscultation: Bilateral: Clear to Auscultation Cardio Palpation: normal PMI Rate: regular rate Rhythm: regular rhythm GI Inspection: normal to inspection Auscultation: normal bowel sounds Percussion: normal to percussion Palpation: no hepatosplenomegaly Skin General: no rashes or lesions noted Neuro General: patient alert Extrem General: normal to inspection Psych Affect: normal affect Assessment and Plan Assessment and Plan (1) Crohn's disease: Status: Chronic Qualifiers: Gastrointestinal tract location: small intestine Digestive disease complication type: without complication Qualified Code(s): K50.00 - Crohn's disease of small intestine without complications Plan: Crohn's disease of the ileocolonic areas in the colon along with Crohn's disease jejunum.? Currently on Stelara every 4 weekly transitioning to every 6 weekly.? His last Stelara level was 13 with no antibodies after having failed Humira and Lialda therapy.? We will get Skyrizi levels and antibody levels at the end of February and to follow-up in the clinic after that.? He has had no illnesses, nausea, vomiting, diarrhea and is maintaining his weight.? He also denies any arthralgia, vision issues, skin issues or changes since he was last seen.? His mother and the patient were discussed in detail regarding the plan and they are okay with that plan.? If anything changes in the interim we will communicate with them. 2 abdominal pain-he has not had an upper endoscopy and with his intermittent abdominal pain and needing Stelara every 4 weeks we will perform an upper endoscopy to evaluate his upper GI tract and his lower GI tract. He was explained alternatives, risk, benefits include not withstanding bleeding, infection, sepsis, perforation, need for emergent urgent . He will have an ASA of 3.
--- NOTE | 2023-10-02 07:30 | EGD_PTH ---
PATIENT: JAYDON MONTANO LOC: EN U#:[id number] AGE/SX: 22/M ROOM: RE10/02/[address]: Dr. Enrike Pearl DO : 2000 BED: DIS: 10/02/2023 SPEC #: [id number] RECD: 10/02/23 11:33 STATUS: TONY REDonaldo #: [id number] ANASTASIA: 10/02/23 07:[address]: Enrike Pearl DEPT: SURGICAL PATHOLOGY RECD BY: Amaya Wheatley ENTERED: 10/02/23 12:59 SP TYPE: EGD BIOPSY OT DR: Dr. Viet Dahl DO Tissues: A - Gastric mucous membrane B - Esophagus, NOS C - Ileum, NOS D - COLON BIOPSY Procedures: Special Stain Group I Surgery Specimen Level IV Alcian Blue/PAS (control) HEADER OPERATION: Colonoscopy with biopsies, EGD PRE-OP DIAGNOSIS: Crohn's disease TISSUE SUBMITTED: A- Gastric body biopsy, B- Distal esophagus biopsy, C- Terminal ileum biopsy, D- Random colon biopsy MICROSCOPIC DIAGNOSIS A. Gastric body, biopsy: Mild chronic gastritis. See comment. B. Distal esophagus, biopsy: Fragment of gastric mucosa with mild chronic gastritis. No evidence of goblet cell metaplasia. See comment. C. Terminal ileum, biopsy: Polytypic benign lymphoid aggregates. See comment. D. Colon, random biopsy: No pathologic change. AM/mr 10/03/2023 COMMENT A. The results of immunohistochemistry for Helicobacter pylori will be reported separately ([id number]). B. Alcian blue/PAS stain with matched control supports the above diagnosis. C. Immunohistochemistry ([id number]) supports the above diagnosis. MICROSCOPIC DESCRIPTION Slides are reviewed. GROSS DESCRIPTION A. Received in fixative is one container labeled with the patient's name and designated Gastric body biopsy. The specimen consists of multiple irregular fragments of light martinez soft tissue that in aggregate measure 1.0 x 0.3 x 0.1 cm. The specimen is totally submitted in one cassette. B. Received in fixative is one container labeled with the patient's name and designated Distal esophagus biopsy. The specimen consists of one irregular fragment of light martinez soft tissue that measures 0.5 x 0.2 x 0.1 cm. The specimen is totally submitted in one cassette. C. Received in fixative is one container labeled with the patient's name and designated Terminal ileum biopsy. The specimen consists of multiple irregular fragments of light martinez soft tissue that in aggregate measure 1.5 x 0.3 x 0.1 cm. The specimen is totally submitted in one cassette. D. Received in fixative is one container labeled with the patient's name and designated random colon biopsy. The specimen consists of multiple irregular fragments of light martinez soft tissue that in aggregate measure 1.2 x 0.3 x 0.1 cm. The specimen is totally submitted in one cassette. Micky 10/02/2023 TC:3 CPT:38628f2,14244
--- NOTE | 2023-10-02 07:30 | IMM_PTH ---
PATIENT: JAYDON MONTANO LOC: EN U#:[id number] AGE/SX: 22/M ROOM: RE10/02/[address]: Dr. Enrike Pearl DO : 2000 BED: DIS: 10/02/2023 SPEC #: [id number] RECD: 10/02/23 13:09 STATUS: TONY REQ #: [id number] ANASTASIA: 10/02/23 07:[address]: Enrike Pearl DEPT: IMMUNOHISTOCHEMISTRY RECD BY: Matthew Templeton ENTERED: 10/02/23 13:09 SP TYPE: IMMUNO OTHR DR: Dr. Viet Dahl DO Tissues: A - Gastric mucous membrane C - Ileum, NOS Procedures: H Pylori (initial) CD20 (add) CD45 (add) CD5 (add) CD79A (add) CD3 (initial) PHYSICIAN & INSTITUTION [place] [id number] SPECIMEN INFORMATION: Tissue Source: A- Gastric body biopsy, C-Terminal ileum biopsy Clinical Info: Crohn's disease Specimen Number: [id number] A C CPT code: 04194c0, 76709g8 METHODOLOGY: Deparaffinized sections of prefer/formalin-fixed tissue or PAP/DQ stained slides are incubated with monoclonal/polyclonal antibodies/oligonucleotide probes. Localization is made via biotin free immunoperoxidase method. Appropriate controls are performed and reacted as expected. Results on target cell population are indicated in the following table: RESULTS: ANTIBODY / CLONE RESULT Block A H Pylori (polyclonal) negative Block C CD3 (PS1) positive CD5 (SP10) positive CD20 (L26) positive CD45 (RP2/18) positive CD79a (11E3) positive These tests were developed and their performance characteristics determined by [facility]. They may not have been cleared or approved by the U.S. Food and Drug Administration. The FDA has determined that such clearance or approval is not necessary. The above immunohistochemical/dualISH markers are ordered and reviewed by the Pathologist. INTERPRETATION: A. Gastric body, biopsy: Negative for Helicobacter pylori organisms. C. Terminal ileum, biopsy: Polytypic lymphoid aggregates. ENRIKE/ 10/04/2023
[2023-10-02 07:46] VITALS: BP 112/72; BP 99/74; PULSE 71; RESP 20; TEMP 36.3; O2SAT 98
[2023-10-02 07:50] VITALS: BP 112/72; BP 99/66; PULSE 68; RESP 20; O2SAT 98
--- NOTE | 2023-10-02 07:52 | OP.EGD_ITS ---
Patient Name: Jordy Mcdonnell Procedure Date: 10/02/2023 7:17 AM Date of : 2000 Age: 22 Procedure: Upper GI endoscopy Indications: Epigastric abdominal pain Providers: Enrike Pearl DO Referring MD: Viet Dahl Medicines: Monitored Anesthesia Care Patient Profile: This is a 22 year old male. Refer to note in patient chart for documentation of history and physical. Patient has symptoms. Complications: No immediate complications. Procedure: Pre-Anesthesia Assessment: - Prior to the procedure, a History and Physical was performed, and patient medications and allergies were reviewed. The patient is competent. The risks and benefits of the procedure and the sedation options and risks were discussed with the patient. All questions were answered and informed consent was obtained. Patient identification and proposed procedure were verified by the physician in the pre-procedure area. Mental Status Examination: alert and oriented. Airway Examination: normal oropharyngeal airway and neck mobility. Respiratory Examination: clear to auscultation. CV Examination: normal. Prophylactic Antibiotics: The patient does not require prophylactic antibiotics. Prior Anticoagulants: The patient has taken no anticoagulant or antiplatelet agents. ASA Grade Assessment: II - A patient with mild systemic disease. After reviewing the risks and benefits, the patient was deemed in satisfactory condition to undergo the procedure. The anesthesia plan was to use monitored anesthesia care (MAC). Immediately prior to administration of medications, the patient was re-assessed for adequacy to receive sedatives. The heart rate, respiratory rate, oxygen saturations, blood pressure, adequacy of pulmonary ventilation, and response to care were monitored throughout the procedure. The physical status of the patient was re-assessed after the procedure. After obtaining informed consent, the endoscope was passed under direct vision. Throughout the procedure, the patient's blood pressure, pulse, and oxygen saturations were monitored continuously. The pediatric colonoscope was introduced through the mouth, and advanced to the second part of duodenum. The upper GI endoscopy was accomplished without difficulty. The patient tolerated the procedure well. Scope In: 7:26:15 AM Scope Out: 7:30:08 AM Total Procedure Duration Time 0 hours 3 minutes 53 seconds Findings: The Z-line was irregular and was found 40 cm from the incisors. Biopsies were taken with a cold forceps for histology. Verification of patient identification for the specimen was done. Estimated blood loss was minimal. Patchy mildly erythematous mucosa without bleeding was found in the gastric body. Biopsies were taken with a cold forceps for histology. Verification of patient identification for the specimen was done. Estimated blood loss was minimal. The second portion of the duodenum was normal. Impression: - Z-line irregular, 40 cm from the incisors. Biopsied. - Erythematous mucosa in the gastric body. Biopsied. - Normal second portion of the duodenum. Recommendation: - Await pathology results. - Continue present medications. Procedure Code(s): --- Professional --- 64645, Esophagogastroduodenoscopy, flexible, transoral; with biopsy, single or multiple CPT copyright 2021 [employer]. All rights reserved. The codes documented in this report are preliminary and upon seo associate review may be revised to meet current compliance requirements. Enrike Pearl DO 10/02/2023 7:52:18 AM This report has been signed electronically. Number of Addenda: 0 Note Initiated On: 10/02/2023 7:17 AM
--- NOTE | 2023-10-02 07:52 | OP.CCLET_ITS ---
10/02/2023 Viet Dahl Re : Upper GI endoscopy procedure for Jordy Mcdonnell Joey Dahl This procedure was performed on Monday, October 02, 2023. My impressions and recommendations are as follows: Impressions : - Z-line irregular, 40 cm from the incisors. Biopsied. - Erythematous mucosa in the gastric body. Biopsied. - Normal second portion of the duodenum. Recommendations : - Await pathology results. - Continue present medications. My findings are described in the full procedure note, which is enclosed. If I can be of further assistance, please feel free to contact me at . Sincerely, Enrike Pearl, 10/02/2023 7:52:18 AM This report has been signed electronically.
[2023-10-02 07:55] VITALS: BP 107/73; BP 112/72; PULSE 79; RESP 18; O2SAT 100
--- NOTE | 2023-10-02 07:55 | OP.CCLET_ITS ---
10/02/2023 Viet Dahl Re : Colonoscopy procedure for Jordy Mcdonnell Jeoy Dahl This procedure was performed on Monday, October 02, 2023. My impressions and recommendations are as follows: Impressions : - Preparation of the colon was fair. - Stool in the sigmoid colon, in the descending colon, at the splenic flexure and in the transverse colon. Biopsied. - The examined portion of the ileum was normal. Biopsied. Recommendations : - Discharge patient to home. - Resume previous diet. - Continue present medications. - Await pathology results. - Repeat colonoscopy in 1 year for surveillance. My findings are described in the full procedure note, which is enclosed. If I can be of further assistance, please feel free to contact me at . Sincerely, Enrike Pearl, 10/02/2023 7:54:46 AM This report has been signed electronically.
--- NOTE | 2023-10-02 07:55 | OP.COLON_ITS ---
Patient Name: Jordy Mcdonnell Procedure Date: 10/02/2023 7:30 AM Date of : 2000 Age: 22 Procedure: Colonoscopy Indications: Crohn's disease of the small bowel and colon Providers: Enrike Pearl DO Referring MD: Viet Dahl Medicines: Monitored Anesthesia Care Patient Profile: This is a 22 year old male. Refer to note in patient chart for documentation of history and physical. Patient has symptoms. Last Colonoscopy: 1 year ago. Complications: No immediate complications. Procedure: Pre-Anesthesia Assessment: - Prior to the procedure, a History and Physical was performed, and patient medications and allergies were reviewed. The patient is competent. The risks and benefits of the procedure and the sedation options and risks were discussed with the patient. All questions were answered and informed consent was obtained. Patient identification and proposed procedure were verified by the physician in the pre-procedure area. Mental Status Examination: alert and oriented. Airway Examination: normal oropharyngeal airway and neck mobility. Respiratory Examination: clear to auscultation. CV Examination: normal. Prophylactic Antibiotics: The patient does not require prophylactic antibiotics. Prior Anticoagulants: The patient has taken no anticoagulant or antiplatelet agents. ASA Grade Assessment: II - A patient with mild systemic disease. After reviewing the risks and benefits, the patient was deemed in satisfactory condition to undergo the procedure. The anesthesia plan was to use monitored anesthesia care (MAC). Immediately prior to administration of medications, the patient was re-assessed for adequacy to receive sedatives. The heart rate, respiratory rate, oxygen saturations, blood pressure, adequacy of pulmonary ventilation, and response to care were monitored throughout the procedure. The physical status of the patient was re-assessed after the procedure. After I obtained informed consent, the scope was passed under direct vision. Throughout the procedure, the patient's blood pressure, pulse, and oxygen saturations were monitored continuously. The pediatric colonoscope was introduced through the anus and advanced to the cecum, identified by appendiceal orifice and ileocecal valve. The colonoscopy was performed without difficulty. The patient tolerated the procedure well. The quality of the bowel preparation was fair. The terminal ileum, ileocecal valve, appendiceal orifice, and rectum were photographed. Scope In: 7:31:50 AM Scope Withdrawal Time 0 hours 6 minutes 34 seconds Scope Out: 7:40:46 AM Total Procedure Duration Time 0 hours 8 minutes 56 seconds Findings: The perianal and digital rectal examinations were normal. Stool was found in the sigmoid colon, in the descending colon, at the splenic flexure and in the transverse colon. Biopsies were taken with a cold forceps for histology. Verification of patient identification for the specimen was done. Estimated blood loss was minimal. The terminal ileum appeared normal. Biopsies were taken with a cold forceps for histology. Verification of patient identification for the specimen was done. Estimated blood loss was minimal. Impression: - Preparation of the colon was fair. - Stool in the sigmoid colon, in the descending colon, at the splenic flexure and in the transverse colon. Biopsied. - The examined portion of the ileum was normal. Biopsied. Recommendation: - Discharge patient to home. - Resume previous diet. - Continue present medications. - Await pathology results. - Repeat colonoscopy in 1 year for surveillance. Procedure Code(s): --- Professional --- 46473, Colonoscopy, flexible; with biopsy, single or multiple CPT copyright 2021 [employer]. All rights reserved. The codes documented in this report are preliminary and upon industrial machine assembler review may be revised to meet current compliance requirements. Enrike Pearl DO 10/02/2023 7:54:46 AM This report has been signed electronically. Number of Addenda: 0 Note Initiated On: 10/02/2023 7:30 AM
[2023-10-02 08:01] VITALS: BP 112/72; BP 116/78; PULSE 74; RESP 18; TEMP 36.8; O2SAT 100
[2023-10-02 08:19] VITALS: BP 112/72
== END 2023-10-02 08:20 | disposition home or self-care (01) ==
LOC: EN 06:27 → AC 06:28
PROVIDERS: PCP Family Medicine; Referring Provider Family Medicine; Visit Provider Internal Medicine Gastroenterology
PROC: 0DJD8ZZ Inspection of Lower Intestinal Tract, Via Natural or Artificial Opening Endoscopic (ICD-10-PCS; CPT 45378; principal; 2023-10-02 07:25)
DX: K50.00 Crohn's disease of small intestine without complications (principal); R10.9 Unspecified abdominal pain; K22.89 Other specified disease of esophagus; K31.89 Other diseases of stomach and duodenum; K29.50 Unspecified chronic gastritis without bleeding
CPT/HCPCS: 43239; 45380; 83630; 83993; 88305; 88312; 88341; 88342

== ENCOUNTER → 2024-02-29 | Outpatient (CLI) | payer BC, MEDICAID, SELFPAY ==
[2024-02-29 17:20] LABS: CRP < 2.90 mg/L (0.0-3.0)
[2024-02-29 17:29] LABS: Erythrocyte Sedimentation Rate < 1 mm/hr (0-20)
== END | disposition home or self-care (01) ==
LOC: LAB 16:26
PROVIDERS: PCP Family Medicine; Referring Provider Internal Medicine Gastroenterology; Visit Provider Internal Medicine Gastroenterology
DX: K50.00 Crohn's disease of small intestine without complications (principal)
CPT/HCPCS: 36415; 85652; 86140

== ENCOUNTER → 2025-02-03 | Outpatient (CLI) | payer OTHER, SELFPAY ==
[2025-02-03 17:11] LABS: Hematocrit 37.9 % (40-54); Hemoglobin 13.9 g/dL (13.0-16.5); Immature Granulocytes Count 0.050 X10^3/uL (0.0-0.0); Mean Corp Hgb Conc 36.7 g/dL (32-36); Mean Corpuscular Volume 84.4 fL (80-94); Mean Platelet Vol. 10.0 fl (6.2-12.0); NRBC Flagged by Analyzer 0 % (0-5); Platelet Count 253 K/mm3 (150-450); RBC Distribution Width CV 11.0 % (11.6-14.6); RBC Distribution Width SD 34.1 fl (35.1-43.9); Red Blood Count 4.49 M/mm3 (4.6-6.2); White Blood Count 6.1 K/mm3 (4.4-11.0)
[2025-02-03 18:19] LABS: AST(SGOT) 16 U/L (<=37); Alanine Aminotransfer ALT/SGPT 11 U/L (<=46); Albumin, Serum 4.2 g/dL (3.5-5.0); Alkaline Phosphatase 64 U/L (40-129); Anion Gap 12 (5-15); BUN 8 mg/dL (4-19); BUN/Creat Ratio 9.2 RATIO (10-20); Calcium,Total 9.3 mg/dL (7.6-11.0); Carbon Dioxide 24.1 mmol/L (21.0-32.0); Chloride 100 mmol/L (98-108); Globulin 3.1 g/dL (2.2-4.2); Glucose 106 mg/dL (70-99); Potassium 3.7 mmol/L (3.3-5.1)
[2025-02-03 18:59] LABS: CRP 59.00 mg/L (0.0-3.0); LDH 199 U/L (87-241)
[2025-02-06 15:07] LABS: Albumin 3.4 g/dL (2.9-4.4); CMV Acute Antibody IgM < 30.0 AU/mL (0.0-29.9); EBV Acute VCA IgM < 36.0 U/mL (0.0-35.9); EBV-VCA IgG 33.3 U/mL (0.0-17.9); Gamma Globulin 0.8 g/dL (0.4-1.8); Immunoglobulin A 208 mg/dL (90-386); Immunoglobulin G 769 mg/dL (603-1613); Immunoglobulin M 61 mg/dL (20-172); PROEL- TOTAL PROTEIN 6.7 g/dL (6.0-8.5)
== END | disposition home or self-care (01) ==
LOC: LAB 16:33
PROVIDERS: PCP Family Medicine; Referring Provider Internal Medicine Gastroenterology; Visit Provider Internal Medicine Gastroenterology
DX: K50.00 Crohn's disease of small intestine without complications (principal)
CPT/HCPCS: 36415; 80053; 82784; 83615; 84165; 85025; 85652; 86140; 86334; 86644; 86645; 86663; 86664; 86665